=== PATIENT | female | born 2000 | race Caucasian/White ===

== ENCOUNTER 2020-03-10 12:33 | Outpatient (REF) | payer MEDICAID, SELFPAY ==
--- NOTE | 2020-03-10 11:00 | PAPFT_PTH ---
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
[2020-03-10 13:12] LABS: Calculated LDL 82 mg/dL (<100); Cholesterol 169 mg/dL (<200); HDL Cholesterol 67 mg/dL (40-60); Triglyceride 104 mg/dL (<150)
[2020-03-15 11:01] LABS: Chlamydia Result Negative (Negative); GC Result Negative (Negative)
[2020-03-15 15:29] LABS: Helicobacter pylori Ag, Feces Negative (Negative)
== END 2020-03-10 12:53 ==
LOC: LBN 12:33
PROVIDERS: PCP Nurse Practitioner; Visit Provider Nurse Practitioner
DX: F51.05 Insomnia due to other mental disorder (principal); F99 Mental disorder, not otherwise specified; Z13.6 Encounter for screening for cardiovascular disorders; Z12.4 Encounter for screening for malignant neoplasm of cervix; Z11.51 Encounter for screening for human papillomavirus (HPV)
CPT/HCPCS: 80061; 87338; 87491; 87591; 88142

== ENCOUNTER 2020-05-19 08:10 | Day surgery (SDC) | payer MEDICAID, SELFPAY ==
[2020-05-19 08:24] VITALS: BP 99/56; PULSE 66; RESP 16; TEMP 36.7; O2SAT 99
--- NOTE | 2020-05-19 08:46 | NUR.NOTE ---
States she quarantined since her Covid-19 test but later on in interview when asked when the last time she had something to eat she said that she and her friends when out to eat last night in [place] and had pizza, burgers and fries. Dr. Shah, charge nurse and anesthesia made aware. Nursing Note:
--- NOTE | 2020-05-19 08:52 | NUR.NOTE ---
Director of Surgical Services made aware of non-compliance with quarantine. Nursing Note:
--- NOTE | 2020-05-19 09:43 | NUR.NOTE ---
Asked patient if she had a conversation with the screening nurse about quarantining after taking the Covid-19 test. She responded, What do you mean? This nurse asked patient what the screening nurse told her about quarantining after the Covid test and before coming to the hospital. She said, I don't know what you mean. This nurse then asked patient what quarantine means. Patient said, ...stay in a room all by yourself? This nurse explained that it means she needs to stay in her home and not go to public places, or have the public come to her home for the duration after her covid test is done and the time she comes to the hospital. This nurse explained that leaving her home and going to [place] for lunch with friends disrupted that quarantine and she was at risk of satish Covid and bringing it into the hospital before she is symptomatic, and this is why hospitals are so strict and take covid testing and quarantining so seriously. Patient then notified by this nurse that her procedure is cancelled and that Dr. Shah's office will call to reschedule. This nurse explained the quarantine process to patient and encouraged compliance for her next scheduled appointment. Patient appeared frustrated, tossed her covers of and proceeded to bathroom with bag of clothing saying, Alright.... Escorted out by TIM at 0945. Nursing Note:
== END 2020-05-19 08:30 ==
PROVIDERS: PCP Nurse Practitioner; Visit Provider Surgery
DX: R69 Illness, unspecified (principal)

== ENCOUNTER 2021-05-05 01:01 | Outpatient (CLI) | payer MEDICAID, SELFPAY ==
--- NOTE | 2021-05-05 10:00 | NS.NUTBLAN_ITS ---
Margaret was referred for Medical Nutrition Therapy for ongoing weight loss and IBS symptoms. Wt: 96 lbs, 5'2 BMI: 17.5. Usual body weight 110-115 lbs. Reports nausea, cramping, diarrhea, constipation and lack of hunger since 2016. Had gastric ulcer in 2016 that was healed with carafate and prilosex. Current Meds: buspar. Margaret avoids high fiber foods, acid causing foods, raw veggies and milk products. 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 She reports having anxiety and feels unwell and weak as not able to eat enough calories to maintain weight. She is here today to learn how to increase caloric intake. Diet record indicates daily intake about 800 calories, 25 grams protein. Estimated Needs: 9900-1429 kcal, 45-55 g protein Diagnosis: Moderate malnutrition in view of low weight and inability to consume adequate macronutrients due to GI symptoms from IBS Suspect Margaret has IBS with diarrhea that alternates with constipation. She also has GERD that was well controlled with carafate but prilosec no longer working. Reviewed ways to increase intake to meet a minimum of 1400 kcal by adding easy to digest foods. Encouraged her to log meals and monitor macronutrient intake, symptoms. She reports food insecurity and will refer her to community connections to sign up for food stamps and SNAP. Recommend Margaret to restart carafate and to ask PCP for prescription heart burn medication such as protonics or aciphex. Also recommend that she see a therapist for stress relief and consider starting an antianxiety medication as shown to improve gut hypersensitivity. Follow up planned by phone on 05/05/21
== END 2021-05-05 01:02 | disposition home or self-care (01) ==
LOC: DS 01:01
PROVIDERS: PCP Nurse Practitioner; Visit Provider Dietitian, Registered
DX: R63.4 Abnormal weight loss (principal); K58.2 Mixed irritable bowel syndrome; E44.0 Moderate protein-calorie malnutrition; Z71.3 Dietary counseling and surveillance
CPT/HCPCS: 97802

== ENCOUNTER 2021-09-06 11:48 | Outpatient (REF) | payer MEDICAID, SELFPAY ==
[2021-09-08 15:17] LABS: COVID-19 RT-PCR UVMMC Result Indeterminate (Negative)
== END 2021-09-06 11:49 | disposition home or self-care (01) ==
LOC: LBN 11:48
PROVIDERS: PCP Nurse Practitioner; Visit Provider Family Medicine
DX: J06.9 Acute upper respiratory infection, unspecified (principal); Z20.822 Contact with and (suspected) exposure to COVID-19
CPT/HCPCS: U0003

== ENCOUNTER 2022-03-20 13:29 | Outpatient (REF) | payer MEDICAID, SELFPAY ==
--- NOTE | 2022-03-20 10:15 | PAPFT_PTH ---
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
[2022-03-22 14:58] LABS: Chlamydia Result Negative (Negative); GC Result Negative (Negative)
== END 2022-03-20 13:30 | disposition home or self-care (01) ==
LOC: LBN 13:29
PROVIDERS: PCP Nurse Practitioner; Visit Provider Nurse Practitioner
DX: Z11.3 Encounter for screening for infections with a predominantly sexual mode of transmission (principal); Z12.4 Encounter for screening for malignant neoplasm of cervix
CPT/HCPCS: 87491; 87591; 88142

== ENCOUNTER → 2023-04-10 01:36 | Outpatient (CLI) | payer MEDICAID, SELFPAY ==
--- NOTE | 2023-04-10 06:45 | DI.CT_ITS ---
Exam(s) CT ABDOMEN PELVIS W EXAM: CT ABDOMEN PELVIS W CLINICAL HISTORY: lower abdominal pain,R10.9. TECHNIQUE: Imaging Protocol: Axial computed tomography images with coronal and sagittal reformatted images were created and reviewed CONTRAST MATERIAL: Intravenous: Omnipaque 350 Contrast volume:70 ml Oral: yes / COMPARISON: US ABDOMEN ULTRASOUND (P) from 02/09/2016 NM HEPATOBILIARY CCK from 05/24/2016 FINDINGS: ABDOMEN: Lung Bases: Normal where visualized. Liver: Normal density. No measurable mass. Gallbladder and biliary tract: No radiodense calculus or dilation. Pancreas: Normal density, no abnormal calcifications or inflammatory process. Spleen: Normal. Kidneys: Normal size, contour and axis. No radiodense stones or obstructive uropathy. No suspicious m asses seen. Adrenal glands: No masses seen. Abdominal Aorta: Abdominal portion non-dilated. Soft tissues: Unremarkable. PELVIS: Bladder: No gross wall thickening. No calculi.No focal mass. Bowel: The administered oral contrast is present in the stomach through distal descending colon. No obstruction. No bowel wall thickening. Appendix normal. Moderate to increased quantity of stool to the level of the lower descending colon. Little stool distally.. Peritoneal cavity: No ascites, collection or mesenteric inflammatory response. Bones: Unremarkable for age. Reproductive organs: Within normal limits. Lymph nodes: Unremarkable. Impression: Unremarkable CT scan of the abdomen and pelvis. RADIATION DOSE DELIVERED: 511.63mGy.cm Total DLP DATA REPOSITORY: All CT scans at this facility are submitted to the National Radiology Data Registry (NRDR) Dose Index Registry (DIR) with the [employer] (ACR). RADIATION OPTIMIZATION: All CT scans at this facility use at least one of these dose optimization te chniques: automated exposure control; mA and/or kV adjustment per patient size (includes targeted exa ms where dose is matched to clinical indication); or iterative reconstruction.
[2023-04-10] MEDS: Barium Sulfate 2% W/V-Creamy Vanilla Smoothie 450 ML BTL 900 ML PO (08:18)
[2023-04-10] MEDS: Normal Saline - Diluent 50 ML VIAL IJ (10:14)
[2023-04-10] MEDS: Omnipaque 350 MG/ML 100 ML BTL IJ (10:15)
[2023-04-10] MEDS: Normal Saline Flush 10 ML SYR IVP (10:16)
== END ==
PROVIDERS: PCP Nurse Practitioner Family; Visit Provider Nurse Practitioner Family
DX: R10.9 Unspecified abdominal pain (principal)
CPT/HCPCS: 74177; J3490

== ENCOUNTER 2024-04-13 21:53 | Outpatient (REF) | payer BC, SELFPAY ==
[2024-04-13 22:13] LABS: Bilirubin Negative (Negative); Blood Small (Negative); Clarity Clear (Clear); Glucose Negative (Negative); Ketones Negative (Negative); Leukocyte Esterase Negative (Negative); Nitrite Negative (Negative); Urobilinogen 0.2 mg/dL (Up to 0.2)
[2024-04-13 22:21] LABS: Bacteria Negative HPF (Negative); C & S Indicated? No; Crystals Negative HPF (Negative); Epithelial Cells Negative HPF (Negative); Mucus Negative (Negative); WBC Negative HPF (0-5)
== END 2024-04-13 21:54 | disposition home or self-care (01) ==
LOC: LBN 21:53
PROVIDERS: PCP Nurse Practitioner Family; Visit Provider Nurse Practitioner Family
DX: R30.0 Dysuria (principal); N89.8 Other specified noninflammatory disorders of vagina; R10.11 Right upper quadrant pain; Z00.00 Encounter for general adult medical examination without abnormal findings; R39.15 Urgency of urination; R32 Unspecified urinary incontinence
CPT/HCPCS: 81003; 81015; 87480; 87510; 87660

== ENCOUNTER 2024-05-28 01:19 | Outpatient (CLI) | payer BC, SELFPAY ==
--- NOTE | 2024-05-28 06:45 | DI.MRI_ITS ---
Exam(s) MR ABDOMEN WO/W EXAM: MR ABDOMEN WO/W CLINICAL HISTORY: 1.9 x 1.4 cm hypoechoic area in the head of the pancreas,ruq pain,r10.11, TECHNIQUE: Multiplanar multisequence MRI of the Abdomen was performed. MRCP sequences also perform ed. CONTRAST MATERIAL: IV Contrast: 11 mL of Dotarem contrast administered. COMPARISON: CT CT ABDOMEN PELVIS W from 04/10/2023 US US ABDOMEN LIMITED from 05/01/2024 FINDINGS: Liver: Unremarkable. Pancreas: Unremarkable. No evidence mass or cyst in the pancreatic head. No pancreatic ductal dila tation. No evidence adjacent adenopathy. Gallbladder and Bile Ducts: Unremarkable. Adrenals: Unremarkable. Kidneys: Unremarkable. Spleen: Unremarkable. Aorta: Unremarkable. Soft Tissues: Unremarkable. Bone: Unremarkable. Lymph Nodes: Unremarkable. Lung bases show no evidence of pleural effusions. Bowel: Unremarkable where visualized. IMPRESSION: Normal MR of the Abdomen. No evidence of pancreatic mass. DATA REPOSITORY:
[2024-05-28] MEDS: Normal Saline - Diluent 50 ML VIAL 25 ML IJ (08:58)
[2024-05-28] MEDS: Gadoterate meglumine 20 ML VIAL 11 ML IVP (08:59)
== END 2024-05-28 01:39 ==
LOC: DI 01:20
PROVIDERS: PCP Nurse Practitioner Family; Visit Provider Nurse Practitioner Family
DX: R10.11 Right upper quadrant pain (principal); Q45.3 Other congenital malformations of pancreas and pancreatic duct
CPT/HCPCS: 74183

== ENCOUNTER 2025-04-27 17:45 | Outpatient (REF) | payer BC, SELFPAY ==
--- NOTE | 2025-04-27 16:15 | PAPFT_PTH ---
PATIENT: Margaret Rojas LOC: [facility] U#:[id number] AGE/SX: 25/F ROOM: RE04/27/[address]: Cleo Zuluaga NP : 2000 BED: DIS: 04/27/2025 SPEC #: [id number] RECD: 04/28/25 12:51 STATUS: ROMIE REYES #: [id number] LILIANA: 04/27/25 16:[address]: Cleo Zuluaga DEPT: [facility] Cytology RECD BY: Alexandria Johnson Tissues: 1 - CX/ENDOCX FOR PAP SMEARS Procedures: PAP THIN PREP/[facility] Screening Comments: [id number]
== END 2025-04-27 17:46 | disposition home or self-care (01) ==
LOC: LBN 17:45
PROVIDERS: PCP Nurse Practitioner Family; Visit Provider Nurse Practitioner Family
DX: Z12.4 Encounter for screening for malignant neoplasm of cervix (principal)
CPT/HCPCS: 88142